=== PATIENT | male | born 1990 | race Two or more races ===

== ENCOUNTER → 2017-04-12 | Outpatient (CLI) | payer OTHER | END | disposition home or self-care (01) | LOC: SPEC 23:18 | PROVIDERS: ATTEND Family Medicine | DX: R07.9 Chest pain, unspecified (principal) | CPT/HCPCS: 36415; 84484 ==

== ENCOUNTER 2021-01-29 22:01 | Emergency (ER) | payer OTHER ==
[~2021-01-29] VITALS: Ht 180.3 cm; Wt 113.6 kg
[2021-01-29] MEDS ORDERED: IV NORMAL SALINE 1,000ML 1,000 ML IV ONE (22:15)
--- NOTE | 2021-01-29 22:35 | PHYS DOC ---
Past History Past Medical History: Diabetes, High Cholesterol, Hypertension Additional Past Medical Histor: personality d/o, schizoeffective d/o, MRSA (ELIAS WARD SIGNALMAN) Past Surgical History: Other Additional Past Surgical Histo: neck pain, (ELIAS WARD SIGNALMAN) Alcohol Use: Occasionally (ELIAS WARD SIGNALMAN) Adult General Chief Complaint Chief Complaint: OVERDOSE HPI HPI Patient is a 30-year-old male patient with a history of hypertension, high cholesterol, diabetes type 2, schizophrenia, presenting to the ED today from [facility] with 2 correctional officers to be evaluated for overdose. Patient states today at 20:40 he took lisinopril 5 mg 10 tablets, meloxicam 15 mg 23 tablets and drank self-made alcohol in effort to harm himself. Denies any symptoms in the ED. [facility] officer stated this patient was already on suicide watch. Patient denies any suicidal or homicidal ideations right now. (ELIAS WARD SIGNALMAN) Review of Systems Review of Systems Constitutional: Denies fever or chills [] Eyes: Denies change in visual acuity, redness, or eye pain [] HENT: Denies nasal congestion or sore throat [] Respiratory: Denies cough or shortness of breath [] Cardiovascular: No additional information not addressed in HPI [] GI: Denies abdominal pain, nausea, vomiting, bloody stools or diarrhea [] : Denies dysuria or hematuria [] Musculoskeletal: Denies back pain or joint pain [] Integument: Denies rash or skin lesions [] Neurologic: Denies headache, focal weakness or sensory changes [] Psych: Reports overdose All other systems were reviewed and found to be within normal limits, except as documented in this note. (ELIAS WARD SIGNALMAN) Current Medications Current Medications Current Medications Medications (Trade) Dose Ordered Sig/Faustino Start Time Stop Time Status Last Admin Dose Admin Sodium Chloride 1,000 ml @ 1,000 mls/hr 1X ONCE 01/29/21 22:15 01/29/21 23:14 (ELIAS WARD SIGNALMAN) Allergies Allergies Allergies Coded Allergies Type Severity Reaction Last Updated Verified No Known Drug Allergies 01/29/21 No (ELIAS WARD SIGNALMAN) Physical Exam Physical Exam Constitutional: Well developed, well nourished, no acute distress, non-toxic appearance. [] HENT: Normocephalic, atraumatic, bilateral external ears normal, oropharynx moist, no oral exudates, nose normal. [] Eyes: PERRLA, EOMI, conjunctiva normal, no discharge. [] Neck: Normal range of motion, no tenderness, supple, no stridor. [] Cardiovascular:Heart rate regular rhythm, no murmur [] Lungs & Thorax: Bilateral breath sounds clear to auscultation [] Abdomen: Bowel sounds normal, soft, no tenderness, no masses, no pulsatile masses. [] Skin: Warm, dry, no erythema, no rash. [] Back: No tenderness, no CVA tenderness. [] Extremities: No tenderness, no cyanosis, no clubbing, ROM intact, no edema. [] Neurologic: Alert and oriented X 3, normal motor function, normal sensory function, no focal deficits noted. [] Psychologic: Flat affect (ELIAS WARD SIGNALMAN) Current Patient Data Vital Signs Vital Signs Date Time Temp Pulse Resp B/P (MAP) Pulse Ox O2 Delivery O2 Flow Rate FiO2 01/29/21 22:08 98.0 64 14 151/72 (98) 99 (ELIAS WARD SIGNALMAN) EKG EKG [address] Kae fields rhythm HR 61 no STEMI[] [address] Kae fields rhythm HR 63 no STEMI[] (ELIAS WARD SIGNALMAN) Radiology/Procedures Radiology/Procedures [] (ELIAS WARD SIGNALMAN) Heart Score C/O Chest Pain: N/A Risk Factors: Risk Factors: DM, Current or recent (<one month) smoker, HTN, HLP, family history of CAD, obesity. Risk Scores: Risk Factors: DM, Current or recent (<one month) smoker, HTN, HLP, family hi story of CAD, obesity. (ELIAS WARD SIGNALMAN) Course & Med Decision Making Course & Med Decision Making Pertinent Labs and Imaging studies reviewed. (See chart for details) This a 30-year-old male inmate [facility] overdose he took lisinopril 5 mg 10 tablets, meloxicam 15 mg 23 tablets and drank self-made alcohol. BP on [id number] HR in the 60s, 100% on RA 2230 spoke with poison control, they requested we do a CBC CMP alcohol level, give patient IV fluids and watch him until 1 AM and he can be discharged Spoke to Aaron from PAT team, she spoke with the correctional facility officer, who stated this patient was already on suicide watch and they are working on his placement. Aaron recommended he goes back to half-way when cleared from the ED CBC with no acute findings, CMP with glucose of 243, anion gap is 15. UA negative for ketones, alcohol level 36 Patient was given 1 L IV At some point during his stay in the ED he reported chest pain, EKG was done which was negative. Later he reported nausea, he was given Zofran. Patient was discharged back to [facility] (ELIAS WARD SIGNALMAN) Course & Med Decision Making Did not see or evaluate patient. Agree with COMM[employer] DES[employer]ER's work-up and disposition per note. (MANN CERVANTES MD) Dragon Disclaimer Dragon Disclaimer This electronic medical record was generated, in whole or in part, using a voice recognition dictation system. (ELIAS WARD APRN) Departure Departure: Impression: Primary Impression: Overdose Additional Impressions: ETOH abuse Hyperglycemia Disposition: [address]/LAW ENFORCEMENT Condition: STABLE Referrals: BATOOL CAMARA FNP (PCP) follow up with your doctor Patient Instructions: Hyperglycemia, Overdose, Adult Additional Instructions: You were evaluated in the emergency room, your work-up was negative for any acute findings. Your glucose is 243. Urine has no ketones, your alcohol level is 46. Please follow-up with your own doctor Problem Qualifiers Primary Impression: Overdose Encounter type: initial encounter Injury intent: intentional self-harm Qualified Codes: T50.902A - Poisoning by unspecified drugs, medicaments and biological substances, intentional self-harm, initial encounter ELIAS WARD APRN Jan 29, 2021 22:35 MANN CERVANTES MD Jan 30, 2021 01:10
[2021-01-29 22:46] LABS: CREATININE 0.7 mg/dL (0.7-1.3); GFR 134.3; POTASSIUM 3.6 mmol/L (3.5-5.1)
[2021-01-29 22:49] LABS: BASO # 0.1 x10^3/uL (0.0-0.2); BASO % 1 % (0-3); EOS # 0.2 x10^3/uL (0.0-0.7); EOS % 2 % (0-3); HEMATOCRIT 45.4 % (39.0-53.0); HEMOGLOBIN 15.6 g/dL (13.0-17.5); LYMPH # 3.6 x10^3/uL (1.0-4.8); LYMPH % 36 % (24-48); MEAN CORPUSCULAR HEMOGLOBIN 30 pg (25-35); MEAN CORPUSCULAR HGB CONC 34 g/dL (31-37); MEAN CORPUSCULAR VOLUME 87 fL (79-100); MONO # 0.8 x10^3/uL (0.0-1.1); MONO % 8 % (0-9); NEUT # 5.4 x10^3uL (1.8-7.7); NEUT % 54 % (31-73); PLATELET COUNT 382 x10^3/uL (140-400); RED BLOOD COUNT 5.21 x10^6/uL (4.30-5.70); RED CELL DISTRIBUTION WIDTH 13.7 % (11.5-14.5); WHITE BLOOD COUNT 9.9 x10^3/uL (4.0-11.0)
[2021-01-29 22:52] LABS: ALBUMIN 4.1 g/dL (3.4-5.0); TOTAL BILIRUBIN 0.2 mg/dL (0.2-1.0); TOTAL PROTEIN 8.2 g/dL (6.4-8.2)
[2021-01-29 22:55] LABS: ACETAMIN < 2.0 mcg/mL (10-30); ETHANOL 46 mg/dL (0-10); SALIC 1.6 mg/dL (2.8-20.0)
--- NOTE | 2021-01-29 23:24 | EKG ---
[address] [address] Test Date: 2021-01-29 Test Time: 22:42:56 Pat Name: DAVID HUBBARD Department: Room: Gender: Sap Basis Administrator: PRITESH : 1990 Requested By: ELIAS WARD Order Number: [id number] Reading MD: Vasiliy Venegas MD Measurements Intervals [place] Rate: 61 P: 40 [place]: 188 QRS: -5 QRSD: 86 T: 23 QT: 394 QTc: 398 Interpretive Statements SINUS RHYTHM Electronically Signed On 01-30-2021 9:02:01 PREDATORY HUNTER by Vasiliy Venegas MD
[2021-01-29 23:25] LABS: BARBITURATES NEG (NEG); BENZODIAZEPINES NEG (NEG); CANNABINOIDS NEG (NEG); COCAINE NEG (NEG); METHADONE NEG (NEG); OPIATES NEG (NEG); PHENCYCLIDINE NEG (NEG)
[2021-01-29 23:27] LABS: AMPHETAMINE/METHAMPHETAMINE NEG (NEG)
[2021-01-29 23:32] LABS: BACTERIA,URINE 0 /HPF (0-FEW); BILIRUBIN,URINE NEG (NEG); CLARITY,URINE CLEAR; COLOR,URINE YELLOW; GLUCOSE,URINE 250 mg/dL (NEG); NITRITE,URINE NEG (NEG); RBC,URINE 0 /HPF (0-2); UROBILINOGEN,URINE 0.2 mg/dL (0.2 mg/dL); WBC,URINE 0 /HPF (0-4)
[2021-01-30 00:59] VITALS: BP 206/78
[2021-01-30] MEDS ORDERED: ONDANSETRON PF 4 MG/2 ML VIAL. IVP ONE (01:00)
[2021-01-30] MEDS ORDERED: LIDO:MAALOX 1:1 20 ML SINGLE DOSE. PO ONE (01:00)
--- NOTE | 2021-01-30 03:58 | EKG ---
[address] [address] Test Date: 2021-01-29 Test Time: 23:44:41 Pat Name: DAVID HUBBARD Department: Room: Gender: Quality Assurance Calibrator: PRITESH : 1990 Requested By: MANN CERVANTES Order Number: [id number] Reading MD: Vasiliy Venegas MD Measurements Intervals [place] Rate: 63 P: 45 [place]: 192 QRS: 8 QRSD: 84 T: 23 QT: 394 QTc: 406 Interpretive Statements SINUS RHYTHM Electronically Signed On 01-30-2021 9:01:36 DRUM STOCK CLERK by Vasiliy Venegas MD
== END 2021-01-30 01:01 ==
LOC: ER 22:01
DX: T46.4X2A Poisoning by angiotensin-converting-enzyme inhibitors, intentional self-harm, initial encounter (principal); T39.392A Poisoning by other nonsteroidal anti-inflammatory drugs [NSAID], intentional self-harm, initial encounter; F10.10 Alcohol abuse, uncomplicated; E11.65 Type 2 diabetes mellitus with hyperglycemia; I10 Essential (primary) hypertension; E78.00 Pure hypercholesterolemia, unspecified; F20.9 Schizophrenia, unspecified; Y90.2 Blood alcohol level of 40-59 mg/100 ml; Y92.89 Other specified places as the place of occurrence of the external cause
CPT/HCPCS: 36415; 80053; 80307; 80329; 81001; 83690; 83735; 84484; 85025; 85610; 85730; 93005; 96361; 96374; 99285; G0480; J2405; J7030